=== PATIENT | male | born 1975 | race African-American/Black ===

== ENCOUNTER 2017-03-27 19:20 | Emergency (ER) | payer MEDICAID ==
[2017-03-27] MEDS ORDERED: OXYCODONE-ACETAMINOPHEN 5-325 MG TABLET PO ONE (21:53)
--- NOTE | 2017-03-27 21:56 | ER Document Report ---
ED Medical Screen (RME) - General Chief Complaint: Knee Pain Stated Complaint: FALL/LEFT KNEE PAIN Time Seen by Provider: 03/27/17 21:52 Mode of Arrival: Medic Information source: Patient Notes: 41-year-old male presents to ED for complaint of left knee pain. He states he was walking backwards from his truck when he somehow fell landing on his back. He states that he heard crutches in his knee. It was not able to get back up from the ground. He is 288 kg. He states he has been told in the past that he needs surgery on both knees and both ankles. He also has a history of asthma diabetes and blood pressure. He denies any surgeries in the past. He denies smoking drinking or using any drugs. He states that that is the only injury from this fall. Patient became very irate when I tried to assess him or asking other questions. I have greeted and performed a rapid initial assessment of this patient. A comprehensive ED assessment and evaluation of the patient, analysis of test results and completion of medical decision making process will be conducted by an additional ED providers. TRAVEL OUTSIDE OF THE [place] IN LAST 30 DAYS: No - Related Data Allergies/Adverse Reactions: No Known Allergies Allergy (Unverified 03/27/17 21:51) Past Medical History Renal/ Medical History: Denies: Hx Peritoneal Dialysis Physical Exam - Vital signs Vitals: Temp Pulse Resp BP Pulse Ox 98.5 F 69 22 H 225/83 H 94 03/27/17 20:05 03/27/17 20:05 03/27/17 20:05 03/27/17 20:05 03/27/17 20:05 Course - Vital Signs Vital signs: Temp Pulse Resp BP Pulse Ox 98.5 F 69 22 H 225/83 H 94 03/27/17 20:05 03/27/17 20:05 03/27/17 20:05 03/27/17 20:05 03/27/17 20:05
--- NOTE | 2017-03-27 22:32 | RADIOLOGY REPORT (SQ) ---
EXAM DESCRIPTION: KNEE LEFT 2 VIEWS COMPLETED DATE/TIME: 03/27/2017 10:15 pm REASON FOR STUDY: pain COMPARISON: None. NUMBER OF VIEWS: Two views TECHNIQUE: AP and lateral radiographic images acquired of the left knee. LIMITATIONS: None. FINDINGS: MINERALIZATION: Normal. BONES: No acute fracture or dislocation. No worrisome bone lesions. JOINT: There is mild osteophytic lipping at the level of the medial and lateral compartments. SOFT TISSUES: No soft tissue swelling. No radio-opaque foreign body. OTHER: No other significant finding. IMPRESSION: No acute fracture or dislocation. Mild degenerative changes as noted above TECHNICAL DOCUMENTATION: JOB ID: [id number] [employer]- All Rights Reserved
[2017-03-27] MEDS ORDERED: HYDROCODONE/ACETAMINOPHEN 5-325 MG 6 TAB/DSPK PO PRN (23:35)
--- NOTE | 2017-03-27 23:39 | ER Document Report ---
HPI - HPI Patient complains to provider of: left knee pain Pain Level: 5 Context: Patient is a 41-year-old male that comes to the emergency department for chief complaint of left knee pain. He states that he stumbled backwards, twisted his knee, had a sharp pain in his knee, and then fell onto his buttocks/back. He denies head injury. He denies any other areas of pain other than his left knee. He is morbidly obese but he does walk. He lives at home by himself but he has a friend with him [place]. Past medical history of hypertension and asthma. - MUSCULOSKELETAL Musculoskeletal: REPORTS: Extremity pain - left knee pain given ice Past Medical History - General Information source: Patient - Social History Smoking Status: Never Smoker Drug Abuse: None Lives with: Alone Family History: Reviewed & Not Pertinent Patient has suicidal ideation: No Patient has homicidal ideation: No - Past Medical History Cardiac Medical History: Reports: Hx Hypertension Renal/ Medical History: Denies: Hx Peritoneal Dialysis - Immunizations Hx Diphtheria, Pertussis, Tetanus Vaccination: Yes Vertical Provider Document - CONSTITUTIONAL General Appearance: WD/WN, Obese - Morbidly obese - INFECTION CONTROL TRAVEL OUTSIDE OF THE [place] IN LAST 30 DAYS: No - HEENT HEENT: Atraumatic, Normocephalic - NECK Neck: Normal Inspection - RESPIRATORY Respiratory: Breath Sounds Normal, No Respiratory Distress O2 Sat by Pulse Oximetry: 94 - CARDIOVASCULAR Cardiovascular: Regular Rate, Regular Rhythm - GI/ABDOMEN Gastrointestinal: Abdomen Soft - BACK Back: Normal Inspection - MUSCULOSKELETAL/EXTREMETIES Musculoskeletal/Extremeties: Tender - Tenderness over the medial aspect of the left knee, no obvious swelling, no erythema, range of motion intact, normal hip , leg, distal examination of the lower extremity otherwise - NEURO Level of Consciousness: Awake, Alert, Appropriate Motor/Sensory: No Motor Deficit, No Sensory Deficit - DERM Integumentary: Warm, Dry, No Rash Course - Re-evaluation Re-evalutation: Patient is hypertensive, however he is in pain in regards to his knee, he denies headache, chest pain, or any other symptoms other than knee pain. There is no significant swelling to the knee, there is general tenderness over the medial collateral ligament area of the knee but otherwise it is unremarkable, he appears to have full range of motion, normal distal neurovascular exam, unremarkable examination otherwise including lower extremity, back, neurological exam. X-ray showing no acute abnormality. Discussed with patient. Patient unfortunately was too big for the knee immobilizer. He has difficulty with the crutches. After providing him with pain medication he was able to add up and get into his vehicle. I did discuss with his sister and his friend, they request for patient to be given help at home. They are planning consult was placed after discussion with patient as well. Discussed follow-up with orthopedics, return precautions, patient states understanding and agreement - Vital Signs Vital signs: Temp Pulse Resp BP Pulse Ox 98.5 F 69 22 H 225/83 H 94 03/27/17 20:05 03/27/17 20:05 03/27/17 20:05 03/27/17 20:05 03/27/17 20:05 Discharge - Discharge Clinical Impression: Left knee injury Qualifiers: Encounter type: initial encounter Qualified Code(s): S89.92XA - Unspecified injury of left lower leg, initial encounter Condition: Stable Disposition: HOME, SELF-CARE Additional Instructions: Your x-ray of the knee shows some degenerative changes but no avulsion fracture , effusion, or concerning abnormalities. Examination is consistent with ligament injury (medial collateral ligament sprain). Apply ice to the area 3-4 times a day for 10-15 minutes, continue your anti-inflammatory medication, elevate your knee, and rest. Use the knee immobilizer and crutches if this helps. If symptoms of pain continue please follow-up with the orthopedics referral for additional evaluation and management. Return to the emergency department for any concerning or worsening symptoms including severe swelling, redness, or any other concerning symptoms. Forms: Elevated Blood Pressure Referrals: ADÁN PAGE PA-C [Primary Care Provider] - Follow up as needed GILLES TANNER MD [ACTIVE STAFF] - Follow up in 1 week
[2017-03-28] MEDS ORDERED: HYDROMORPHONE HCL INJ/PF 2 MG/ML AMPULE IM ONE (00:16)
[2017-03-28 00:17] VITALS: BP 200/121
== END 2017-03-28 00:35 | disposition home or self-care (01) ==
LOC: EDBD → ER 19:20
DX: S89.92XA Unspecified injury of left lower leg, initial encounter (principal); X50.0XXA Overexertion from strenuous movement or load, initial encounter; M25.562 Pain in left knee; I10 Essential (primary) hypertension; E66.01 Morbid (severe) obesity due to excess calories
CPT/HCPCS: 99283; 96372; 73560; J1170